=== PATIENT | male | born 1995 | race Two or more races ===

== ENCOUNTER 2025-08-27 04:18 | Emergency (ER) | payer MEDICAID, OTHER ==
[~2025-08-27] VITALS: Ht 167.6 cm; Wt 81.5 kg
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
[2025-08-27] MEDS: KETOROLAC TROMETH 60MG/2ML VIAL IM ONE (05:04)
[2025-08-27] MEDS: HYDROcodone-ACET 5/325MG TAB PO ONE (05:05)
[2025-08-27] MEDS ORDERED: IBUP-1456 PO (05:07)
[2025-08-27] MEDS ORDERED: TIZA-142 PO (05:07)
[2025-08-27 05:18] VITALS: BP 142/83; PULSE 61; RESP 16; TEMP 98.1; O2SAT 97
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
== END 2025-08-27 05:18 | disposition home or self-care (01) ==
LOC: ER 04:18
DX: S13.4XXA Sprain of ligaments of cervical spine, initial encounter (principal); S39.012A Strain of muscle, fascia and tendon of lower back, initial encounter; S60.312A Abrasion of left thumb, initial encounter; S80.01XA Contusion of right knee, initial encounter; S80.11XA Contusion of right lower leg, initial encounter; V89.2XXA Person injured in unspecified motor-vehicle accident, traffic, initial encounter; Y93.89 Activity, other specified; Y92.410 Unspecified street and highway as the place of occurrence of the external cause; Y99.8 Other external cause status
CPT/HCPCS: 72040; 72100; 96372; 99284; J1885